=== PATIENT | female | born 1995 | race Caucasian/White ===

== ENCOUNTER 2019-04-30 23:23 | Emergency (ER) | payer OTHER ==
[~2019-04-30] VITALS: Ht 167.7 cm; Wt 72.6 kg
[2019-04-30] MEDS ORDERED: birth control PO (23:40)
[2019-04-30] MEDS ORDERED: LEVO100T7 (23:40)
--- NOTE | 2019-05-01 00:02 | ED Chest Pain ---
General Chief Complaint: Psych/Social Disorder Stated Complaint: CP Nursing Triage Note: c/o chest wall pain radiating to back, bilateral arm/leg numbness/tingling, vomitting x1 syncopal episode. since 2129 Nursing Sepsis Screen: No Definite Risk Source: patient Exam Limitations: no limitations History of Present Illness Date Seen by Provider: Apr 30, 2019 Time Seen by Provider: 23:35 Initial Comments The patient presents to ER with her significant other and chief complaint of chest pain starting at about 9:30 tonight. She was sitting at the library standing when this occurred. She felt very short of breath and after about 30-45 minutes this past. She still having some pain in her sternum and just to the right parasternal space especially on direct palpation. She also experienced some tingling in her distal extremities and around her mouth. This has all passed. She does not have a history of panic attacks or anxiety. He does not history of heart disease nor familial early onset heart disease. No sudden cardiac in her family. Her father was recently diagnosed with unprovoked pulmonary embolisms. She has no swelling in her hands or feet or evidence of a DVT. She is not short of breath now. Last year she was diagnosed with exercise induced asthma but she says that went away spontaneously. She heard no wheezing tonight and says that tonight was different from last year. She follows with the [facility] for primary care. She does take Synthroid and has NuvaRing. Allergies and Home Medications Allergies Coded Allergies: No Known Drug Allergies (Unverified , 04/30/19) Home Medications [ control] , 1 PO DAILY, (Reported) Patient Home Medication List Home Medication List Reviewed: Yes Review of Systems Review of Systems Constitutional: No chills, No diaphoresis EENTM: No Blurred Vision, No Double Vision Respiratory: Denies Cough; Shortness of Air Cardiovascular: Chest Pain; Denies Edema Gastrointestinal: Denies Abdomen Distended, Denies Abdominal Pain Genitourinary: Denies Burning, Denies Discharge Musculoskeletal: No back pain, No joint pain All Other Systems Reviewed Negative Unless Noted: Yes Past Ovoarlm-Tvaktl-[place] Hx Patient Social History Alcohol Use: Rarely Uses Recreational Drug Use: No Smoking Status: Never a Smoker 2nd Hand Smoke Exposure: No Recent Foreign Travel: No Contact w/Someone Who Travel: No Recent Infectious Disease Expo: No Recent Hopitalizations: No Physical Abuse: No Sexual Abuse: No Mistreated: No Fear: No Immunizations Up To Date Tetanus Booster (TDap): Less than 5yrs Seasonal Allergies Seasonal Allergies: No Past Medical History Surgeries: No Respiratory: No Cardiac: No Neurological: No : No Genitourinary: No Gastrointestinal: No Musculoskeletal: Yes Scoliosis Endocrine: Yes Hypothyroidsim HEENT: No Cancer: No Psychosocial: No Integumentary: No Blood Disorders: No Physical Exam Vital Signs Vital Signs - First Documented 04/30/19 23:32 Temp 36.7 Pulse 77 Resp 18 B/P (MAP) 147/83 (104) Pulse Ox 97 O2 Delivery Room Air Capillary Refill : Less Than 3 Seconds Height, Weight, BMI Height: '" Weight: lbs. oz. kg; 25.00 BMI Method: General Appearance: No Apparent Distress, WD/WN, Anxious HEENT: PERRL/EOMI, Pharynx Normal, Moist Mucous Membranes Neck: Full Range of Motion, Normal Inspection, Non Tender, Supple Respiratory: No Chest Non Tender (chest pain is reproducible by direct palpation over the sternum); Lungs Clear, Normal Breath Sounds, No Accessory Muscle Use, No Respiratory Distress Cardiovascular: Regular Rate, Rhythm, No Edema, Normal Peripheral Pulses Gastrointestinal: No Organomegaly, No Pulsatile Mass, Non Tender, Soft Extremity: Normal Capillary Refill, Normal Inspection, Normal Range of Motion, Non Tender, No Calf Tenderness, No Pedal Edema Neurologic/Psychiatric: Alert, Oriented x3, No Motor/Sensory Deficits Skin: Normal Color, Warm/Dry Progress/Results/Core Measures Results/Orders My Orders Orders - MARY JO CENTENO Ekg Tracing (04/30/19 23:31) Continuous Ekg Monitoring (04/30/19 23:31) Vital Signs/I&O 04/30/19 23:32 Temp 36.7 Pulse 77 Resp 18 B/P (MAP) 147/83 (104) Pulse Ox 97 O2 Delivery Room Air Blood Pressure Mean: 104 POS Progress Progress Note : Time: 00:00 Progress Note Well score 0.0 points; Low risk group: 1.3% chance of PE in an ED population. PERC score: 0 criteria; No need for further workup, as <2% chance of PE. If no criteria are positive and clinicians pre-test probability is <15%, PERC Rule criteria are satisfied. We did discuss doing some labs and discussed a reasonable risk for pulmonary embolism with no clinical evidence. We offered to do a d-dimer even though the pretest probability was exquisitely low and the risk of a false-positive therefore very high. We discussed that if we get this test and it was high that a CT of the chest with contrast which has all the risks of radiation and contrast associated with it would be indicated to rule out a pulmonary embolism. We explained to her that based on statistics we have already successfully ruled her out for pulmonary embolism. We also explained that a pulmonary embolism would not cause pain and shortness of breath that would then go away after a few minutes and costochondritis with panic attack is a far more likely diagnosis. We have satisfied all of her concerns and questions and give her good return precautions and encouraged her to follow-up with primary care team outpatient this week. Initial ECG Impression Date: May 01, 2019 Initial ECG Impression Time: 23:38 Initial ECG Rate: 78 Initial ECG Rhythm: Normal Sinus Initial ECG Intervals: Normal Initial ECG Impression: Normal Comment Normal sinus rhythm without ST elevation or depression. Departure Impression Primary Impression: Costochondritis, acute Additional Impression: Panic attack Disposition: 01 HOME, SELF-CARE Condition: Stable Departure-Patient Inst. Decision time for Depature: 00:05 Referrals: [facility] (PCP/Family) Primary Care Physician Patient Instructions: Costochondritis (DC), Panic Disorder Add. Discharge Instructions: Start taking ibuprofen 800 mg every 8 hours or naproxen 2 capsules twice a day until the chest pain resides. You may use Tylenol 1000 g every 8 hours as needed. Follow-up with your primary care doctor to discuss further management as necessary. If the pain is severe, persistent or accompanied with shortness of breath then you should return to the nearest ER. If he started experience another panic attack do some deep breathing exercises and take one tablet of Vistaril immediately. All discharge instructions reviewed with patient and/or family. Voiced understanding. Scripts Hydroxyzine Pamoate (Vistaril) 25 Mg Capsule 25 MG PO Q6H PRN for ANXIETY, #10 CAP 0 Refills Prov: MARY JO CENTENO 05/01/19 Work/School Note: School/Childcare Release Date Seen in the Emergency Department: May 01, 2019 Time Dismissed from Emergency Department: 00:07 Return to School: May 01, 2019 Restrictions: No Restrictions MARY JO CENTENO May 01, 2019 00:02 POS
[2019-05-01] MEDS ORDERED: HYDR25CA PO (00:07)
[2019-05-01 00:10] VITALS: BP 131/79
== END 2019-05-01 00:12 | disposition home or self-care (01) ==
LOC: ER 23:26
DX: M94.0 Chondrocostal junction syndrome [Tietze] (principal); F41.0 Panic disorder [episodic paroxysmal anxiety]; J45.990 Exercise induced bronchospasm; E03.9 Hypothyroidism, unspecified
CPT/HCPCS: 93005; 93041